=== PATIENT | male | born 1950 | race Caucasian/White ===

== ENCOUNTER 2018-03-09 15:23 | Emergency (ER) | payer MEDICARE, OTHER ==
[~2018-03-09] VITALS: Ht 177.8 cm; Wt 97.0 kg
[~2018-03-09 15:23] MED LIST: ALPR-138 PO; ZITH250T PO
[2018-03-09 15:28] VITALS: BP 163/98; PULSE 79; RESP 20; TEMP 97.8; O2SAT 98
[2018-03-09] MEDS ORDERED: LACT10SO5 (16:41)
[2018-03-09] MEDS ORDERED: RISP3 PO (16:41)
[2018-03-09] MEDS ORDERED: MEMA1TAB2 PO (16:41)
[2018-03-09] MEDS ORDERED: CITA10TA4 PO (16:41)
[2018-03-09] MEDS ORDERED: SODIUM CHLOR 0.9% 1000 ML INJ 1,000 ML IV SCH (16:54)
[2018-03-09] MEDS ORDERED: SODIUM CHLORIDE 0.9% FLUSH 10 ML FLUSH IV FLUSH PRN (17:00)
[2018-03-09 17:06] VITALS: O2SAT 96
[2018-03-09 17:09] LABS: AUTOMATED NEUTROPHIL # 2.7 TH/MM3 (1.8-7.7); BASOPHIL % 0.9 % (0.0-2.0); EOSINOPHIL # 0.1 TH/MM3 (0-0.4); EOSINOPHIL % 2.8 % (0.0-4.0); HEMATOCRIT 39.9 % (39.0-51.0); HEMOGLOBIN 13.4 GM/DL (13.0-17.0); LYMPH % 31.5 % (9.0-44.0); LYMPHOCYTE # 1.5 TH/MM3 (1.0-4.8); MEAN CELL VOLUME 89.1 FL (80.0-100.0); MEAN CORPUSCULAR HEMOGLOBIN 30.1 PG (27.0-34.0); MEAN CORPUSCULAR HGB CONC 33.7 % (32.0-36.0); MEAN PLATELET VOLUME 7.7 FL (7.0-11.0); MONO % 7.9 % (0.0-8.0); MONOCYTE # 0.4 TH/MM3 (0-0.9); NEUT % 56.9 % (16.0-70.0); PLATELET COUNT 161 TH/MM3 (150-450); RED BLOOD COUNT 4.47 MIL/MM3 (4.50-5.90); RED CELL DISTRIBUTION WIDTH 11.6 % (11.6-17.2); WHITE BLOOD COUNT 4.7 TH/MM3 (4.0-11.0)
--- NOTE | 2018-03-09 17:12 | PD ---
HPI Chief Complaint: GI Complaint Time Seen by Provider: 16:45 Travel History International Travel<30 days: No Contact w/Intl Traveler<30days: No Traveled to known affect area: No History of Present Illness HPI 67-year-old male presents to the emergency department for evaluation of constipation for 2 weeks. He states his last bowel movement was 1 week ago. Patient is here with his POA, lifetime partner. Pertinent states that he does not have a history of constipation. He does have a history of dementia. The caregiver states that he has had decreased appetite. The patient denies any pain. He reports history of appendectomy. No other abdominal surgeries. No vomiting. No other symptoms or complaints. Moderate severity. Patient has been taking lactulose and MiraLAX without improvement. PFSH Past Medical History Dementia: Yes Past Surgical History Appendectomy: Yes Other Surgery: Yes (BILAT UNLAR) Social History Alcohol Use: No Tobacco Use: No Substance Use: No Allergies-Medications (Allergen,Severity, Reaction): Coded Allergies: phenobarbital (Unverified Allergy, Severe, COMA, 03/09/18) Sulfa (Sulfonamide Antibiotics) (Unverified Allergy, Unknown, 03/09/18) PT STATES UNKNOWN REACTION penicillin G (Unverified Allergy, Unknown, 03/09/18) PT STATES UNKNOWN REACTION Uncoded Allergies: ANTHROPINES (Allergy, Unknown, 04/29/13) PT STATES UNKNOWN REACTION. ETHER (Allergy, Unknown, 04/29/13) PT STATES UNKNOWN REACTION. Reported Meds & Prescriptions Reported Meds & Active Scripts Active Reported Lactulose 10 Gram/15 Ml (15 Ml) Solution Memantine 10 Mg Tab 28 Mg PO DAILY Risperdal (Risperidone) 3 Mg Tab 3 Mg PO DAILY Citalopram (Citalopram Hydrobromide) 10 Mg Tab 10 Mg PO DAILY Review of Systems Except as stated in HPI: all other systems reviewed are Neg Physical Exam Narrative GENERAL: Well-nourished, well-developed male patient, afebrile. SKIN: Focused skin assessment warm/dry. HEAD: Normocephalic. Atraumatic. EYES: No scleral icterus. No injection or drainage. NECK: Supple, trachea midline. No JVD or lymphadenopathy. CARDIOVASCULAR: Regular rate and rhythm without murmurs, gallops, or rubs. RESPIRATORY: Breath sounds equal bilaterally. No accessory muscle use. Lung sounds are clear to auscultation peer GASTROINTESTINAL: Abdomen soft, non-tender, nondistended. MUSCULOSKELETAL: No cyanosis, or edema. BACK: Nontender without obvious deformity. No CVA tenderness. RECTAL EXAM: No masses or tenderness, stool is brown. This exam was done with RN at bedside. No evidence of fecal impaction. Data Data Last Documented VS Vital Signs Date Time Temp Pulse Resp B/P (MAP) Pulse Ox O2 Delivery O2 Flow Rate FiO2 03/09/18 17:06 96 03/09/18 15:28 97.8 79 20 163/98 (119) Orders Orders Complete Blood Count With Diff (03/09/18 16:54) Comprehensive Metabolic Panel (03/09/18 16:54) Lipase (03/09/18 16:54) Prothrombin Time / Inr (Pt) (03/09/18 16:54) Act Partial Throm Time (Ptt) (03/09/18 16:54) Urinalysis - C+S If Indicated (03/09/18 16:54) Ct Abd/Pel W Iv Contrast(Rout) (03/09/18 16:54) Iv Access Insert/Monitor (03/09/18 16:54) Ecg Monitoring (03/09/18 16:54) Oximetry (03/09/18 16:54) Sodium Chlor 0.9% 1000 Ml Inj (Ns 1000 M (03/09/18 16:54) Sodium Chloride 0.9% Flush (Ns Flush) (03/09/18 17:00) Iohexol 350 Inj (Omnipaque 350 Inj) (03/09/18 18:00) Labs Laboratory Tests Test 03/09/18 16:55 03/09/18 18:15 White Blood Count 4.7 TH/MM3 Red Blood Count 4.47 MIL/MM3 Hemoglobin 13.4 GM/DL Hematocrit 39.9 % Mean Corpuscular Volume 89.1 FL Mean Corpuscular Hemoglobin 30.1 PG Mean Corpuscular Hemoglobin Concent 33.7 % Red Cell Distribution Width 11.6 % Platelet Count 161 TH/MM3 Mean Platelet Volume 7.7 FL Neutrophils (%) (Auto) 56.9 % Lymphocytes (%) (Auto) 31.5 % Monocytes (%) (Auto) 7.9 % Eosinophils (%) (Auto) 2.8 % Basophils (%) (Auto) 0.9 % Neutrophils # (Auto) 2.7 TH/MM3 Lymphocytes # (Auto) 1.5 TH/MM3 Monocytes # (Auto) 0.4 TH/MM3 Eosinophils # (Auto) 0.1 TH/MM3 Basophils # (Auto) 0.0 TH/MM3 CBC Comment DIFF FINAL Differential Comment Prothrombin Time 11.1 SEC Prothromb Time International Ratio 1.1 RATIO Activated Partial Thromboplast Time 26.8 SEC Blood Urea Nitrogen 14 MG/DL Creatinine 1.00 MG/DL Random Glucose 90 MG/DL Total Protein 7.6 GM/DL Albumin 4.0 GM/DL Calcium Level 9.4 MG/DL Alkaline Phosphatase 82 U/L Aspartate Amino Transf (AST/SGOT) 21 U/L Alanine Aminotransferase (ALT/SGPT) 27 U/L Total Bilirubin 0.5 MG/DL Sodium Level 140 MEQ/L Potassium Level 3.9 MEQ/L Chloride Level 105 MEQ/L Carbon Dioxide Level 28.3 MEQ/L Anion Gap 7 MEQ/L Estimat Glomerular Filtration Rate 74 ML/MIN Lipase 180 U/L Urine Color YELLOW Urine Turbidity CLEAR Urine pH 6.5 Urine Specific [place] LESS/EQUAL 1.005 Urine Protein NEG mg/dL Urine Glucose (UA) NEG mg/dL Urine Ketones 15 mg/dL Urine Occult Blood NEG Urine Nitrite NEG Urine Bilirubin NEG Urine Urobilinogen 0.2 MG/DL Urine Leukocyte Esterase NEG Urine RBC 0-2 /hpf Urine WBC 0-2 /hpf Urine Squamous Epithelial Cells 0-5 /hpf Urine Bacteria NONE /hpf Microscopic Urinalysis Comment CULT NOT INDICATED MDM Medical Decision Making Medical Screen Exam Complete: Yes Emergency Medical Condition: Yes Medical Record Reviewed: Yes Interpretation(s) Last Impressions Abdomen/Pelvis CT 03/09/18 5859 Signed Impressions: Service Date/Time: Friday, March 09, 2018 17:53 - CONCLUSION: 1. 2 simple cysts within the right lobe of the liver. 2. Mild degenerative changes and scoliosis of lumbar spine. Russell Freeman MD Differential Diagnosis Constipation versus fecal impaction versus bowel obstruction versus abdominal mass Narrative Course 67 year-old male presents to the emergency department for constipation for 2 weeks, has not had a bowel movement in 1 week. He denies any pain. Abdomen is soft and nontender. Caregiver does report decreased appetite patient has history of dementia. Rectal exam is negative for fecal impaction. IV access established. CBC, CMP, lipase, PTT, PT/INR, UA ordered and pending. CT abdomen /pelvis with IV contrast is ordered and pending CBC is unremarkable. CMP is unremarkable. Lipase is 180. Coags are unremarkable. UA is negative for acute infection. CT abdomen/pelvis shows 2 simple cysts within the right lobe of the liver, mild degenerative changes and scoliosis of the lumbar spine. I discussed the case my attending physician, Dr. Ferrer, who agrees with plan and disposition. Patient will be discharged prescription for GoLYTELY. He is to follow-up with his primary care physician. The patient was discharged in stable condition with instructions, including return instructions and follow up instructions. Diagnosis Primary Impression: Constipation Qualified Codes: K59.00 - Constipation, unspecified Referrals: Primary Care Physician call for appointment Patient Instructions: Constipation (ED), General Instructions Additional Instructions: Take GoLYTELY for constipation. Follow-up with a primary care physician. Return to the emergency department for any acute worsening of symptoms. Med/Other Pt SpecificInfo: Prescription(s) given Scripts Peg-Electrolytes (Golytely 236 gm) 4,000 Ml Soln 4000 ML PO ONCE for Bowel Cleanser, #1 CONTAINER 0 Refills Prov: Michelle Ford 03/09/18 Disposition: 01 DISCHARGE HOME Condition: Stable Michelle Ford March 09, 2018 17:12
[2018-03-09 17:18] LABS: CHLORIDE 105 MEQ/L (98-107); SODIUM (NA) 140 MEQ/L (136-145)
[2018-03-09 17:21] LABS: BICARBONATE 28.3 MEQ/L (21.0-32.0); CALCIUM 9.4 MG/DL (8.5-10.1)
[2018-03-09 17:22] LABS: BLOOD UREA NITROGEN 14 MG/DL (7-18); GLUCOSE,RANDOM 90 MG/DL (74-106)
[2018-03-09 17:23] LABS: INTERNATIONAL NORMALIZED RATIO 1.1 RATIO; PROTHROMBIN TIME - PATIENT 11.1 SEC (9.8-11.6)
[2018-03-09 17:24] LABS: ALT (GPT) 27 U/L (12-78); AST (GOT) 21 U/L (15-37)
[2018-03-09 17:25] LABS: GLOMERULAR FILTRATION RATE 74 ML/MIN (>89)
[2018-03-09 17:26] LABS: TOTAL BILIRUBIN ADULT 0.5 MG/DL (0.2-1.0); TOTAL PROTEIN 7.6 GM/DL (6.4-8.2)
[2018-03-09 17:27] LABS: ALKALINE PHOSPHATASE 82 U/L (45-117)
[2018-03-09] MEDS ORDERED: IOHEXOL 350 MG/ML 10 ML VIAL (for RAD DIAG) IVCONTRAST ONE (18:00)
[2018-03-09 18:46] LABS: BILIRUBIN, URINE NEG (NEG); BLOOD, URINE NEG (NEG); GLUCOSE,URINE NEG (NEG); KETONE, URINE 15 mg/dL (NEG); NITRITE,URINE NEG (NEG); PH, URINE 6.5 (5.0-8.5); URINE COLOR YELLOW (YELLW/STRAW); URINE LEUKOCYTE ESTERASE NEG (NEG)
--- NOTE | 2018-03-09 18:51 | RADRPT ---
EXAM DATE/TIME: 03/09/2018 17:53 [facility] COMPARISON: No previous studies available for comparison. INDICATIONS : Constipated for one week. IV CONTRAST: 95 cc Omnipaque 350 (iohexol) IV ORAL CONTRAST: No oral contrast ingested. RADIATION DOSE: 19.64 CTDIvol (mGy) MEDICAL HISTORY : None SURGICAL HISTORY : Appendectomy. ENCOUNTER: Initial ACUITY: 1 week PAIN SCALE: 0/10 LOCATION: pelvis TECHNIQUE: Volumetric scanning of the abdomen and pelvis was performed. Using automated exposure control and ad justment of the mA and/or kV according to patient size, radiation dose was kept as low as reasonably achievable to obtain optimal diagnostic quality images. DICOM format image data is available electro nically for review and comparison. FINDINGS: LOWER LUNGS: The visualized lower lungs are clear. LIVER: There are 2 small cysts within the right lobe of the liver which are directly adjacent to one another measuring 2.1 and 1.2 cm in greatest dimension. There is no dilation of the biliary tree. No calcif ied gallstones. SPLEEN: Normal size without lesion. PANCREAS: Within normal limits. KIDNEYS: Normal in size and shape. There is no mass, stone or hydronephrosis. ADRENAL GLANDS: Within normal limits. VASCULAR: There is no aortic aneurysm. BOWEL/MESENTERY: The stomach, small bowel, and colon demonstrate no acute abnormality. There is no free intraperitone al air or fluid. ABDOMINAL WALL: Within normal limits. RETROPERITONEUM: There is no lymphadenopathy. BLADDER: No wall thickening or mass. REPRODUCTIVE: Within normal limits. INGUINAL: There is no lymphadenopathy or hernia. MUSCULOSKELETAL: Mild degenerative changes and scoliosis of the lumbar spine CONCLUSION: 1. 2 simple cysts within the right lobe of the liver. 2. Mild degenerative changes and scoliosis of lumbar spine. Russell Freeman MD on March 09, 2018 at 18:42 Board Certified Radiologist. This report was verified electronically.
[2018-03-09 18:54] LABS: RBC, URINE 0-2 /hpf (0-3); SQUAMOUS EPITHELIAL CELL URINE 0-5 /hpf (0-5); WBC, URINE 0-2 /hpf (0-5)
[2018-03-09] MEDS ORDERED: COLY4000S PO (19:01)
== END 2018-03-09 19:17 | disposition home or self-care (01) ==
LOC: PHED 15:23 → PHEFT 19:17
DX: K59.00 Constipation, unspecified (principal); F03.90 Unspecified dementia, unspecified severity, without behavioral disturbance, psychotic disturbance, mood disturbance, and anxiety
CPT/HCPCS: 74177; 80053; 81001; 83690; 85025; 85610; 85730; 96360; 99284; J7030; Q9967